=== PATIENT | female | born 1975 | race Caucasian/White ===

== ENCOUNTER 2016-08-29 21:39 | Observation (INO) ==
[2016-08-29] MEDS ORDERED: Aspirin 325 MG TABLET PO ONE (22:37)
[2016-08-29 23:19] LABS: Basophils # 0.1 K/mcL (0.0-0.2); Basophils % 0.7 %; Eosinophils # 0.7 K/mcL (0.0-0.6); Eosinophils % 6.4 %; Hematocrit 39.5 % (35.3-44.9); Hemoglobin 13.2 g/dL (11.5-15.4); Immature Granulocytes % 0.3 % (0-4); Lymphocytes # 3.7 K/mcL (0.6-4.6); Lymphocytes % 36.7 %; Mean Corpuscular HGB Conc 33.4 g/dL (31.6-35.5); Mean Corpuscular Hemoglobin 28.1 pg (28.0-33.3); Mean Platelet Volume 9.6 fL (9.4-12.4); Monocytes # 0.6 K/mcL (0.0-1.3); Monocytes % 5.5 %; Neutrophils # 5.1 K/mcL (1.6-8.9); Platelet Count 337 K/mcL (140-400); Red Cell Distribution Width 14.3 % (11.5-14.5); Segmented Neutrophils % 50.4 %
[2016-08-29 23:25] LABS: Prothrombin Time 10.6 Seconds (9.4-12.1)
[2016-08-29 23:28] LABS: Activated Partial Thrombo Time 27.6 Seconds (26.0-36.0)
[2016-08-29 23:33] LABS: BUN/Creatinine Ratio 17 (6-26); Blood Urea Nitrogen 13 mg/dL (7-20); Calcium 8.4 mg/dL (8.6-10.8); Carbon Dioxide 19 mEq/L (19-29); Chloride 107 mEq/L (98-109); Glucose 109 mg/dL (70-99); Osmolality,Calculated 283 (280-300); Potassium 3.5 mEq/L (3.5-4.5); Sodium 136 mEq/L (136-145); eGFR For African Americans > 60 (> 60); eGFR For Non-African Americans > 60 (> 60)
--- NOTE | 2016-08-29 23:39 | Emergency Department Note ---
Disposition Clinical Impression: Chest pain, Abnormal EKG Disposition: Admitted As Inpatient Condition: Good Referrals: NO,PCP [Non-Partnered Physician] - Forms: ED Satisfaction Letter Time of Disposition: 01:48 Chest Pain HPI - General Chief Complaint: ED Chest Pain Stated Complaint: chest pain, history of heart attacks Time Seen by Provider: 08/29/16 22:38 Source: patient Mode of arrival: ambulatory Limitations: no limitations Vital Signs Reviewed: Yes Nursing Notes Reviewed: Yes - History of Present Illness HPI Narrative: This is a 41-year-old female who presents with chest pain tightening in quality. Pt states the pain radiates to her LUE and neck. Patient states she is also having nausea and shortness of breath associated. Patient denies any cardiac history she has not had a stress test or heart. Patient states nothing makes it better or worse. Patient states it has been worse over the last couple days. Pt complaint: chest pain Onset (ago): day(s) (2) Duration: constant Severity scale (1-10): 8 - Related Data Home Medications Medication Instructions Recorded Confirmed Ibuprofen [Motrin] 800 mg PO Q6H PRN 11/14/15 05/08/16 Rivaroxaban [Xarelto] 15 mg PO 1700 05/08/16 05/08/16 Previous Rx's Medication Instructions Recorded Ferrous Sulfate [Iron] 1 tab PO DAILY #30 capsule.er 12/23/15 Famotidine [Pepcid] 20 mg PO BID #10 tablet 05/09/16 Hydrocodone/Acetaminophen [[place] 1 tab PO Q4H PRN #12 tab 05/09/16 5-325 Tablet] Ondansetron ODT [Zofran ODT] 4 mg SL Q6HR #12 tab.rapdis 05/09/16 Allergies Allergy/AdvReac Type Severity Reaction Status Date / Time No Known Allergies Allergy Verified 08/29/16 21:55 All systems ED: reviewed and negative except as stated. Constitutional: Denies: fever, chills, weakness, weight change Eyes: Denies: eye pain, eye discharge, vision change ENT ED: Denies: ear pain, throat pain, dental pain, hearing loss, epistaxis, congestion, dysphagia Cardiovascular: Reports: chest pain. Denies: palpitations, dyspnea on exertion , edema, syncope Respiratory: Reports: dyspnea. Denies: cough, wheezes, hemoptysis, stridor Gastrointestinal: Reports: nausea. Denies: abdominal pain, vomiting, diarrhea, constipation, hematemesis, melena, hematochezia Genitourinary: Denies: dysuria, frequency, hematuria, discharge Musculoskeletal: Denies: back pain, neck pain, arthralgia, myalgia Integumentary: Denies: rash, abrasion, lesions Neurological: Denies: headache, weakness, numbness, paresthesias, confusion, abnormal gait, vertigo Psychiatric: Denies: anxiety, depression, suicidal thoughts, homicidal thoughts , auditory hallucinations, visual hallucinations Endocrine: Denies: fatigue Hematological/Lymphatic: Denies: easy bleeding, easy bruising Allergic/Immunologic: Denies: facial swelling, urticaria Chest Pain PMH - Past Medical History Medical history: Reports: coronary artery disease, DVT, kidney stones, migraine , myocardial infarction, pulmonary embolus, other Surgical history: Reports: , cholecystectomy, other ( 5) Psychiatric history: Reports: anxiety HOSPICE ART THERAPIST history: Reports: no HOSPICE ART THERAPIST history, other - Social History Smoking Status: Current every day smoker Alcohol use: Reports: rarely Drug use: Reports: none Physical Exam - General Limitations: no limitations General appearance: alert, in no apparent distress - Head Head exam: atraumatic, normocephalic, normal inspection - Eye Eye exam: Present: normal appearance, PERRL, EOMI - ENT ENT exam: normal exam, normal oropharynx, mucous membranes moist - Expanded ENT Exam External ear exam: Present: normal external inspection Mouth exam: Present: normal external inspection Teeth exam: Present: normal inspection Throat exam: Present: normal inspection - Neck Neck exam: Present: normal inspection, full ROM, trachea midline - Chest Chest inspection: Present: normal inspection, symmetric chest wall rise - Respiratory Respiratory exam: Present: wheezes - Cardiovascular Cardiovascular exam: Present: regular rate, normal rhythm, normal heart sounds - Abdominal Exam Abdominal exam: Present: soft, Non-Tender. Absent: tenderness, distention, guarding, rebound, rigidity - Extremities Exam Extremities exam: Present: normal inspection, full ROM. Absent: tenderness, pedal edema - Expanded Upper Extremity Exam Shoulder exam: Present: normal inspection, full ROM Arm exam: Present: normal inspection, full ROM Elbow exam: Present: normal inspection, full ROM Forearm/Wrist exam: Present: normal inspection, full ROM Hand exam: Present: normal inspection, full ROM Vascular exam: Normal: capillary refill, radial pulse - Expanded Lower Extremity Exam Hip/Pelvis exam: Present: normal inspection, full ROM Upper leg exam: Present: normal inspection, full ROM Knee exam: Present: normal inspection, full ROM Lower leg exam: Present: normal inspection, full ROM Ankle exam: Present: normal inspection, full ROM Foot/toe exam: Present: normal inspection, full ROM Neurovascular/Tendon exam: Absent: motor deficit, sensory deficit, tendon deficit - Back Exam Back exam: Present: normal inspection, full ROM. Absent: tenderness - Neurological Exam Neurological exam: Present: alert, oriented X3 - Expanded Neurological Exam Patient oriented to: Present: person, place, time Coma Scale Eye Opening: Spontaneous Coma Scale Motor Response: Obeys Commands Coma Scale Verbal Response: Oriented Coma Scale Total: 15 - Psychiatric Psychiatric exam: Present: normal affect, normal mood - Skin Skin exam: Present: warm, dry, intact, normal color Course - Consultations Consultation #1: The interventionalist Dr. Boone looked at pts EKG and he states everything is old there is nothing acute on the EKGs. Time: 01:41 Consultation #2: I spoke with Dr. Wesly portilloay to admit. Time: 01:53 Vital Signs Temperature 97.5 F L 08/29/16 21:56 Pulse Rate 68 08/29/16 21:56 Respiratory Rate 20 08/29/16 21:56 Blood Pressure 124/77 08/29/16 21:56 O2 Sat by Pulse Oximetry 97 08/29/16 21:56 Temperature 97.5 F L 08/29/16 21:56 Pulse Rate 60 08/30/16 01:51 Respiratory Rate 16 08/30/16 01:51 Blood Pressure 106/73 08/30/16 01:51 O2 Sat by Pulse Oximetry 99 08/30/16 01:51 Oxygen Delivery Oxygen Delivery Room Air Chest Pain - Medical Records Medical records reviewed: Yes I reviewed the patient's medical records. - Lab Data Lab results reviewed: Yes I reviewed the patient's lab results. Result diagrams: 08/29/16 23:10 08/29/16 23:10 Lab Results 08/29/16 08/29/16 08/29/16 Range/Units 23:10 23:10 23:10 WBC 10.2 (4.3-11.1) K/mcL RBC 4.70 (3.82-4.97) M/mcL Hgb 13.2 (11.5-15.4) g/dL Hct 39.5 (35.3-44.9) % MCV 84.0 (83.0-100.0) fL MCH 28.1 (28.0-33.3) pg MCHC 33.4 (31.6-35.5) g/dL RDW 14.3 (11.5-14.5) % Plt Count 337 (140-400) K/mcL MPV 9.6 (9.4-12.4) fL Immature Gran % 0.3 (0-4) % Seg Neutrophils % 50.4 % Lymphocytes % 36.7 % Monocytes % 5.5 % Eosinophils % 6.4 % Basophils % 0.7 % Neutrophils # 5.1 (1.6-8.9) K/mcL Lymphocytes # 3.7 (0.6-4.6) K/mcL Monocytes # 0.6 (0.0-1.3) K/mcL Eosinophils # 0.7 H (0.0-0.6) K/mcL Basophils # 0.1 (0.0-0.2) K/mcL PT 10.6 (9.4-12.1) Seconds INR 1.0 APTT 27.6 (26.0-36.0) Seconds D-Dimer (0-500) ng/mLFEU Sodium 136 (136-145) mEq/L Potassium 3.5 (3.5-4.5) mEq/L Chloride 107 (98-109) mEq/L Carbon Dioxide 19 (19-29) mEq/L BUN 13 (7-20) mg/dL Creatinine 0.75 (0.57-1.11) mg/dL Est GFR ( Amer) > 60 (> 60) Est GFR (Non-Af Amer) > 60 (> 60) BUN/Creatinine Ratio 17 (6-26) Glucose 109 H (70-99) mg/dL Calculated Osmolality 283 (280-300) Calcium 8.4 L (8.6-10.8) mg/dL Troponin I (0-0.03) ng/mL B-Natriuretic Peptide (0-100) pg/mL TSH 1.609 (0.350-4.840) mcIU/mL 08/29/16 08/29/16 08/29/16 Range/Units 23:10 23:10 23:10 WBC (4.3-11.1) K/mcL RBC (3.82-4.97) M/mcL Hgb (11.5-15.4) g/dL Hct (35.3-44.9) % MCV (83.0-100.0) fL MCH (28.0-33.3) pg MCHC (31.6-35.5) g/dL RDW (11.5-14.5) % Plt Count (140-400) K/mcL MPV (9.4-12.4) fL Immature Gran % (0-4) % Seg Neutrophils % % Lymphocytes % % Monocytes % % Eosinophils % % Basophils % % Neutrophils # (1.6-8.9) K/mcL Lymphocytes # (0.6-4.6) K/mcL Monocytes # (0.0-1.3) K/mcL Eosinophils # (0.0-0.6) K/mcL Basophils # (0.0-0.2) K/mcL PT (9.4-12.1) Seconds INR APTT (26.0-36.0) Seconds D-Dimer 477 (0-500) ng/mLFEU Sodium (136-145) mEq/L Potassium (3.5-4.5) mEq/L Chloride (98-109) mEq/L Carbon Dioxide (19-29) mEq/L BUN (7-20) mg/dL Creatinine (0.57-1.11) mg/dL Est GFR ( Amer) (> 60) Est GFR (Non-Af Amer) (> 60) BUN/Creatinine Ratio (6-26) Glucose (70-99) mg/dL Calculated Osmolality (280-300) Calcium (8.6-10.8) mg/dL Troponin I 0.00 (0-0.03) ng/mL B-Natriuretic Peptide 36 (0-100) pg/mL TSH (0.350-4.840) mcIU/mL 08/30/16 Range/Units 00:59 WBC (4.3-11.1) K/mcL RBC (3.82-4.97) M/mcL Hgb (11.5-15.4) g/dL Hct (35.3-44.9) % MCV (83.0-100.0) fL MCH (28.0-33.3) pg MCHC (31.6-35.5) g/dL RDW (11.5-14.5) % Plt Count (140-400) K/mcL MPV (9.4-12.4) fL Immature Gran % (0-4) % Seg Neutrophils % % Lymphocytes % % Monocytes % % Eosinophils % % Basophils % % Neutrophils # (1.6-8.9) K/mcL Lymphocytes # (0.6-4.6) K/mcL Monocytes # (0.0-1.3) K/mcL Eosinophils # (0.0-0.6) K/mcL Basophils # (0.0-0.2) K/mcL PT (9.4-12.1) Seconds INR APTT (26.0-36.0) Seconds D-Dimer (0-500) ng/mLFEU Sodium (136-145) mEq/L Potassium (3.5-4.5) mEq/L Chloride (98-109) mEq/L Carbon Dioxide (19-29) mEq/L BUN (7-20) mg/dL Creatinine (0.57-1.11) mg/dL Est GFR ( Amer) (> 60) Est GFR (Non-Af Amer) (> 60) BUN/Creatinine Ratio (6-26) Glucose (70-99) mg/dL Calculated Osmolality (280-300) Calcium (8.6-10.8) mg/dL Troponin I 0.00 (0-0.03) ng/mL B-Natriuretic Peptide (0-100) pg/mL TSH (0.350-4.840) mcIU/mL - Radiology Data Radiology results reviewed: Yes I reviewed the patient's radiology results. - EKG Data EKG attestation: Yes I reviewed and interpreted this EKG. EKG shows normal: sinus rhythm Rate: normal Rhythm: NSR [place]/QRS: normal T wave inversions noted in: v3, v4, v5, v6 When compared to previous EKG there are: changes noted (t wave inversions are new) Interpretation: nonspecific ST-T wave changes
[2016-08-30 00:36] LABS: Thyroid Stimulating Hormone 1.609 mcIU/mL (0.350-4.840)
[2016-08-30] MEDS ORDERED: *HR* HYDROcodone/Acet 5/325 mg TABLET PO PRN (04:29)
[2016-08-30] MEDS ORDERED: Naloxone 0.4 MG/ML INJ IVP PRN (04:31)
[2016-08-30] MEDS ORDERED: *HR* OxyCODONE Immed Rel 5 MG TABLET PO PRN (04:31)
[2016-08-30] MEDS ORDERED: Benzonatate 100 MG CAPSULE PO PRN (04:31)
[2016-08-30] MEDS ORDERED: Mag Hydrox/Al Hydrox/Simeth 30 ML UDC PO PRN (04:31)
[2016-08-30] MEDS ORDERED: Acetaminophen 325 MG TABLET PO PRN (04:31)
[2016-08-30] MEDS ORDERED: *HR* Metoprolol 5 MG/5 ML VIAL IVP PRN (04:31)
[2016-08-30] MEDS ORDERED: *HR* Morphine 2 MG/ML SYRINGE IVP PRN ×2 (04:31→04:42)
[2016-08-30] MEDS ORDERED: Albuterol 2.5 MG/3 ML NEBULIZER IH PRN (04:31)
[2016-08-30] MEDS ORDERED: Ondansetron 4 MG/2 ML VIAL IVP PRN (04:31)
[2016-08-30] MEDS ORDERED: Nitroglycerin 0.4 MG TAB.SUBL SL PRN (04:31)
[2016-08-30 05:07] LABS: VBG HCO3 24.5 mEq/L (21-27); VBG PH 7.44 pH Units (7.32-7.42)
[2016-08-30 05:14] LABS: Ionized Calcium 1.1 mmol/L (1.15-1.35)
[2016-08-30 05:21] LABS: Chol/HDL Ratio 4.1 (0-4.9); Magnesium 1.9 mg/dL (1.6-2.6)
[2016-08-30 05:23] LABS: Hemoglobin A1C 5.3 %
[2016-08-30 05:44] LABS: Thyroid Stimulating Hormone 1.395 mcIU/mL (0.350-4.840)
[2016-08-30] MEDS ORDERED: Calcium Gluconate 1,000 MG in D5% in Water 100 ML IVPB ONE (06:21)
[2016-08-30] MEDS: 0.9 % Sodium Chloride 1,000 ML IVC SCH (06:44)
[2016-08-30] MEDS: *HR* OxyCODONE Immed Rel 5 MG TABLET PO PRN ×4 (06:48→23:40)
[2016-08-30] MEDS: Famotidine 20 MG TABLET PO SCH ×2 (08:54→21:00)
[2016-08-30] MEDS: Aspirin 81 MG TAB.CHEW PO SCH (08:54)
[2016-08-30] MEDS: Nicotine 21 MG PATCH.TD24 TD SCH (08:56)
--- NOTE | 2016-08-30 11:22 | Electrocardiograph Report ---
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
--- NOTE | 2016-08-30 11:25 | Electrocardiograph Report ---
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
[2016-08-30] MEDS: Ipratropium/Albuterol Neb 3 ML IH SCH ×3 (11:35→23:13)
--- NOTE | 2016-08-30 14:51 | ECHO - Doppler Report ---
Echocardiogram Name: Oriana Delong Date of Study: 08/30/2016 Date: 1975 Ht: 65.0 in Medical Record#: [id number] Age: 41 Wt: 172.0 lb Gender: Female BSA: 1.86 Order #: [id number] Location: [facility] Room #: 3B39 Reading Physician: Elza Hanson DO Professor/Nurse Anesthetist: Jong Jerez RN Ordering Physician: Sudarshan Jarrell MD Primary Physician: Malinda Saldivar CNP Indications: Chest pain Impressions: LVEF 55%. Normal left ventricular size and systolic function. Normal diastolic function of the left ventricle. Normal right ventricular size and function. No significant valvular dysfunction. No pulmonary hypertension. Left Ventricular Wall Motion: Rest Echo Findings All wall segments showed normal motion. Findings: Study Quality * Technically adequate exam. ECG Findings * Normal sinus rhythm. Left Ventricle * LVEF 55%. * Normal LV chamber size, wall thickness and function. * Normal left ventricular diastolic function. Left Atrium * Normal left atrial size. Mitral Valve * Normal mitral valve structure. * No mitral stenosis. * Trace mitral regurgitation. Aortic Valve * No aortic regurgitation. * Aortic valve not well visualized. * No aortic stenosis. Tricuspid Valve * Trace tricuspid regurgitation. * Normal tricuspid valve structure. * Estimated RA pressure is 3 mmHg. * Estimated RVSP is 24 mmHg. * No pulmonary hypertension. Pulmonic Valve * Pulmonic valve is not well visualized. * No pulmonic stenosis. * Trace pulmonic regurgitation. Pulmonary Artery * Pulmonary artery not well visualized. Right Ventricle * Normal right ventricular structure and function. Right Atrium * Normal right atrial size. Interatrial Septum * No evidence of PFO by color Doppler. IVC * Normal IVC dimensions and inspiratory collapse. Pericardium * There is no pericardial effusion present. Aorta * Normally sized aortic root. History Hypertension History of Smoking Years 6 Packs 0.5 Family History of CAD Myocardial Infarction 11/14/2015 a Previous Echo was performed. Measurements: BP: 90/ 57 2D Normal Values RVIDd: 2.70 cm <2.7 cm IVSd: .80 cm 0.6 - 1.0 cm LVIDd: 5.30 cm 3.7 - 5.6 cm LVPWd: .80 cm 0.6 - 1.1 cm LVIDs: 3.60 cm 1.5 - 3.6 cm LA: 3.30 cm 2.0 - 4.0cm %FS: 32.10 cm >25 % LVOT Diam: 2.00 cm LA volume: Mitral Valve Peak E:.98 m/sec Peak A:.74 m/sec E/A Ratio:1.3 Peak E' Lat Rico:11.1 cm/s Peak E' Med Rico:10.3 cm/s E/E' Lat Ratio:8.8 E/E' Med Ratio:9.5 Tricuspid Valve TV Regurg Peak Grad: 21.00mmHg TV Regurg Peak Rico: 2.31m/sec Updated by Elza Hanson on 08/30/2016 2:47:20 PM electronically signed on 08/30/2016 2:48:01 PM with status of Final Wall Motion [place]: 1=Normal, 2=Hypokinesis, 3=Akinesis, 4=Dyskinesis, 5=Aneurysmal, 6=Hyperkinetic, X=Not Visualized (Blank)=Missing
--- NOTE | 2016-08-30 16:31 | Internal Med Progress Note ---
Date of Encounter: 08/30/16 Time of Encounter: 16:29 - Assessment and plan (1) Chest pain Current Visit: Yes Status: Acute Assessment and plan: The patient was admitted for chest pain, negative cardiac biomarkers. She states has a history of coronary artery disease. She has not seen it regularly for many months. She is not taking medications at this point. We will continue with telemetry monitoring. Echo was obtained, results were unremarkable. We will keep the patient nothing by mouth and obtain a stress test tomorrow in the morning. The patient is a current smoker, smoking cessation was strongly advised. Qualifiers: Chest pain type: precordial pain Qualified Code(s): R07.2 - Precordial pain (2) Tobacco use Current Visit: No Status: Acute - Time Spent With Patient 25 - 35 minutes - Subjective Interval history: The patient was seen and examined on rounds. She was admitted with chest pain. She states that she is still having chest pain. - Constitutional Vitals: Temp Pulse Resp BP Pulse Ox 98.2 F 67 16 93/57 97 08/30/16 14:54 08/30/16 14:54 08/30/16 14:54 08/30/16 14:54 08/30/16 14:54 - Head Head exam: Present: atraumatic, normocephalic - Eye Eye exam: Present: PERRL, conjuntiva pink, sclera anicteric Pupils: Present: PERRL - Neck Neck exam general surgery: Present: supple, trachea midline. Absent: lymphadenopathy - Respiratory Respiratory exam: Present: CTAB. Absent: accessory muscle use, rales, rhonchi, wheezes - Cardiovascular Cardiovascular exam: Present: RRR, +S1, +S2. Absent: diastolic murmur, gallop, rubs, systolic murmur - GI/Abdominal GI/Abdominal exam: Present: normal bowel sounds, soft, no peritoneal signs. Absent: distended, tenderness - Extremities Exam Extremities exam: Present: warm, radial pulses palpable and symetrical. Absent : calf tenderness, cyanotic, pedal edema - Neurological Exam Neurological exam: Present: CN II-XII intact, oriented X3, no focal deficits. Absent: pronater drift, facial droop, speech deficit - Skin Skin exam: Present: dry, intact Internal Medicine: Result - Labs CBC & Chem 7: 08/29/16 23:10 08/29/16 23:10 Labs: Cardiac Enzymes 08/30/16 08/30/16 Range/Units 04:52 07:28 Troponin I 0.00 0.00 (0-0.03) ng/mL - ABG Interpretation ABG results: PT/INR, D-dimer PT 10.6 Seconds (9.4-12.1) 08/29/16 23:10 D-Dimer 477 ng/mLFEU (0-500) 08/29/16 23:10 - Impressions Impressions Chest CTA 08/30/16 08:30 IMPRESSION: Negative CTA of the pulmonary arteries. D/ / 08/30/2016 09:20:29 Gordon Frost MD / [email or web address] Interpreting Provider: Gordon Frost MD Consult Discharge Plan - Plan Referrals: Malinda Saldivar, [employer] [Primary Care Provider] -
[2016-08-30] MEDS ORDERED: *HR* Rivaroxaban 15 MG TABLET PO SCH (17:00)
[2016-08-30] MEDS ORDERED: MethylPREDNISolone 40 MG/ML VIAL IVP SCH (21:00)
[2016-08-31] MEDS: 0.9 % Sodium Chloride 1,000 ML IVC SCH (01:14)
[2016-08-31] MEDS: Ipratropium/Albuterol Neb 3 ML IH SCH ×2 (03:48→10:47)
--- NOTE | 2016-08-31 10:31 | Internal Med History&Physical ---
Date of Encounter: 08/30/16 Time of Encounter: 04:00 Assessment and Plan (1) Acute chest wall pain Status: Acute . (2) Chest pain, rule out acute myocardial infarction Status: Acute . (3) Chest pain with low risk of acute coronary syndrome Status: Acute . (4) Reactive airway disease with wheezing with acute exacerbation Status: Acute . (5) Nicotine dependence with nicotine-induced disorder Status: Chronic . Qualifiers: Nicotine product type: cigarettes Qualified Code(s): F17.219 - Nicotine dependence, cigarettes, with unspecified nicotine-induced disorders (6) Hypercoagulable state Status: Chronic . (7) History of deep vein thrombosis (DVT) during Status: Chronic . (8) History of DVT in adulthood Status: Chronic . (9) History of pulmonary embolus during Status: Chronic . (10) History of pulmonary embolism Status: Chronic . Internal Medicine - H&P: HPI Chief complaint: Chest pain Admitted From: Emergency Dept Plans for Post Hospital Care: Home History of present illness: Ms. Delong is a 41 year old female with history significant for acquired hypercoagulable state (unspecified) with multiple rec DVTs and PEs, chronic anticoagulant therapy (Xarelto), H/O preeclampsia, ?H/O "lupus", CMP/ LVEF 40-45%, nonobstCAD/AMIx2, H/O asthma, osteoarthritis, migraine/headaches, nephrolithiasis, GERD, chr disease/ABL(menorrhagia) anemia, iron deficiency, depression and anxiety, nicotine dependency The patient was visited and interviewed and examined. The patient is admitted to [facility] via the emergency department which presents with reports of acute onset chest pain. Patient reports onset of anterior chest pain approximately 2 days prior to presentation with radiation to left arm and neck. Episodes were associated with nausea and a feeling of shortness of breath. Eyes any/factors. Reports that the pain prior to presentation was worst yet rated at 8/10 in severity patient acknowledges increased personal and family related stressors. History is significant for hypercoagulable state requiring long-term anticoagulation therapy. She has experienced over the years since diagnosis in 2014 during late complicated by preeclampsia and cardiomyopathy multiple episodes of DVTs and PEs and systemic thrombus. She denies any awareness of any family history of hypercoagulable states. Unfortunately she chooses to continue to smoke. She reports compliance with her Xarelto. Denies any dietary medication or recreational indiscretions. Findings in ED: Temperature 97.5 pulse 60-68 respiration 16-20 BP 106-124/73-77. O2 saturation 97-99% room air. CBC 10.2 hemoglobin 13.2 platelets 337,000 differential normal. PT 10.6 INR 1 PTT 27.6. Metabolic panel normal. Glucose 109 osmolality 283. Calcium 8.4. TSH 1.6. Troponin 0.00 BNP 36. D-dimer 477. EKG normal sinus rhythm with T-wave inversions V3 and V4 V5 and V6. Status of the turbinate. Nonspecific ST wave changes. chest x-ray demonstrated no definite acute cardiopulmonary abnormality. 6 mm nodule projecting over the right upper lung uncertain etiology. Prior granulomatous disease right upper lung. Preliminary impression suggests acute chest pain syndrome rule out ACS/UA. Patient is at risk for ACS given very significant complicated the history acquired hypercoagulable status and symptomatic vasculopathy as a consequence. Screening studies are benign. Characteristics of chest pain has typical and atypical features. Patient does acknowledge increased stressors. Patient is at risk for further acute clinical decline and morbidity given this presentation and her significant comorbid conditions. Workup and treatments will proceed comprehensively. Cumulative laboratory and radiographic data base was reviewed, considered and discussed. Pertinent ancillary medical records including ECW and PCI documentation was reviewed and considered. Given the patient's presenting concerns, past medical history, clinical findings and symptoms, she is admitted at this time will undergo further evaluation and disposition. Orders were written as per the computerized physician order entry technician system.......................................................................... .................... Consultative opinions will be sought as clinical circumstances justify. Initial consultative opinion has been requested of cardiology. Pain management needs will be addressed. Laboratory and radiographic data base will be updated as appropriate. Studies include: PT/INR, APTT, Ddimer, CPK, LDH, ZACH, RF, cardiac injury panel, BNP, metabolic and hematologic panel, magnesium, phosphorus, ionized calcium, thyroid panel, lipid profile, A1c, C-peptide, CRP, sedimentation rate, UA, UDS, blood gas, lactic acid, serologies, etc. Precautions: Aspiration, fall, delirium protocol/surveillance initiated. Telemetry with continuous hemodynamic monitoring and pulse oximetry initiated. Orthostatic vital signs. Special studies: CTA chest, chest x-ray, telemetry, EKG, echocardiogram. Anticipate the discretion of cardiovascular medicine team performance of nuclear medicine, Lexiscan, myocardial perfusion stress test pending completion of trending of serial negative troponins treatments. Pulmonary toilet: Incentive spirometry. Aerosol bronchodilator, mucolytic, antitussive PRN. Supplemental oxygen. Corticosteroid therapy PRN. CPAP/BiPAP supplemental oxygen delivery PRN. Aerosol Mucomyst therapy PRN. Fluid and electrolyte repletion efforts will proceed. Careful attention to fluid balance and renal recovery will be emphasized. Avoidance of nephrotoxic exposure and adverse drug drug interaction in the setting of impaired renal function will be monitored closely. Acute coronary syndrome protocol/surveillance initiated. Aspirin, statin, beta zainab, MARIUM inhibitor, supplemental oxygen. Morphine when necessary. Continuance of term anticoagulation (Xarelto). DVT and PUD prophylaxis initiated: PPI therapy, intermittent pneumatic cuffs/ TEDs. Xarelto. Early ambulation will be encouraged. Immunization updates recommended. Influenza and pneumococcal vaccinations as part of ongoing preventative healthcare recommendations strongly recommended. Smoking cessation counseling briefly addressed. Patient accepts nicotine substitution during this hospitalization. Advanced care directive discussion briefly addressed. Patient does not declare any healthcare restrictions at this time. Cardiovascular risk appraisal and cardiovascular risk reduction efforts will be emphasized. Physical and occupational therapy may be consulted to evaluate patient's functional capacity and progress mobility if her circumstances warrant. Outpatient medication schedules will be reviewed, confirmed and facilitated as appropriate. Reconciliation of home treatments including adjustments, substitutions and reintroduction into the treatment regimen will address necessary maintenance therapies for chronic pre-existing medical conditions. Plan of care has been reviewed and discussed in detail with the patient. Questions addressed. Hospital course will depend upon clinical findings, treatment response and potential consultative interventions. Patient is at risk for further acute clinical declineand morbidity due to her presenting chief complaints and comorbidities. Condition is serious. Prognosis is guarded. CODE STATUS is full. Past Med Surg Social Fam HX - Past Medical History Source: old records reviewed Medical history: arthritis, asthma, coronary artery disease, DVT, GERD, kidney stones, migraine, myocardial infarction, pulmonary embolus, other Psychiatric history: anxiety, other - Past Surgical History Surgical History: (x5), cholecystectomy, other (Tubal ligation) - Social History Smoking Status: Current every day smoker Packs per day: 0.5ppd (x7+yrs) Smokeless Tobacco Status: No Alcohol use: rarely Drug use: none Occupational status: employed Current living situation: With Family Activity Level: Independent ambulation, Mostly sedentary Recent Out of Country Travel Within the Last 8 Weeks: No Exposure or Possible Exposure to Illness During Travel: No - Family History Father Living Status: Hx Family Cardiac Disorders: Yes (Heart attack) Mother Living Status: Still Living Hx Family Cardiac Disorders: Yes (HTN) Hx Family Endocrine Disorder: Yes (DM) Internal Medicine - H&P: Meds Ibuprofen [Motrin] 800 mg PO Q6H PRN 11/14/15 [History] Rivaroxaban [Xarelto] 15 mg PO DAILY 05/08/16 [History] Aspirin [Lo-Dose Aspirin EC] 81 mg PO DAILY #30 tablet.dr 08/31/16 [Rx] Allergies No Known Allergies Allergy (Verified 08/30/16 13:51) All Systems PM: A 10-system review of systems was performed and is negative for pertinent findings except as documented above in the HPI. - Constitutional Constitutional: as per HPI, no chills, no fever(s), no night sweats - EENT Eyes: as per HPI, no change in vision, no discharge, no pain, no photophobia Ears: as per HPI, no ear discharge, no ear pain, no tinnitus Nose, mouth and throat: as per HPI, no dysphagia, no nasal discharge, no neck pain, no sore throat - Cardiovascular Cardiovascular ROS IM: as per HPI, chest pain, no diaphoresis, no dyspnea, no lightheadedness, no palpitations, no syncope - Respiratory Respiratory: as per HPI, dyspnea, pain on inspiration, no cough, no hemoptysis, no wheezing, no excessive phlegm production - Gastrointestinal Gastrointestinal: as per HPI, no abdominal pain, no diarrhea, no hematemesis, no hematochezia, no melena, no nausea, no vomiting - Genitourinary Genitourinary: as per HPI, no change in urinary stream, no dysuria, no flank pain, no hematuria Menstruation: as per HPI, menses variable, period heavy, other - Musculoskeletal Musculoskeletal ROS IM: as per HPI, no numbness, no tingling - Integumentary Integumentary IM: as per HPI, no rash, no unusual bruising - Neurological Neurological ROS: as per HPI, no confusion, no convulsions, no focal weakness, no numbness, no tingling, no tremor(s) - Psychiatric Psychiatric: as per HPI - Endocrine Endocrine IM: as per HPI - Hematologic/Lymphatic Hematologic/Lymphatic: as per HPI, no easy bruising - Allergic/Immunologic Allergic/Immunologic: as per HPI - Constitutional Vitals: Temp Pulse Resp BP Pulse Ox 97.6 F 65 16 100/63 96 08/31/16 07:00 08/31/16 07:09 08/31/16 07:00 08/31/16 07:09 08/31/16 07:00 General appearance: Present: mild distress, A&O X 3, answers questions appropriately - Head Head exam: Present: atraumatic, normal inspection, normocephalic - Eye Eye exam: Present: EOMI, PERRL, conjuntiva pink, sclera anicteric Pupils: Present: normal accommodation, PERRL - ENT ENT exam: Present: mucous membranes moist, normal oropharynx - Neck Neck exam general surgery: Present: full ROM, tenderness (Along paracervical mm. of neck.), supple, trachea midline. Absent: lymphadenopathy, nuchal rigidity - Expanded Neck Exam Neck exam: Present: tenderness. Absent: anterior neck swelling, carotid bruit, tracheal deviation - Respiratory Respiratory exam: Present: chest wall tenderness, decreased breath sounds, wheezes. Absent: accessory muscle use, rales, rhonchi - Cardiovascular Cardiovascular exam: Present: distant heart sounds, RRR, +S1, +S2. Absent: diastolic murmur, gallop, rubs, systolic murmur - GI/Abdominal GI/Abdominal exam: Present: normal bowel sounds, soft, no peritoneal signs. Absent: distended, tenderness - Extremities Exam Extremities exam: Present: full ROM, warm, radial pulses palpable and symetrical. Absent: calf tenderness, cyanotic, pedal edema - Neurological Exam Neurological exam: Present: alert, CN II-XII intact, oriented X3, no focal deficits. Absent: pronater drift, facial droop, speech deficit - Psychiatric Psychiatric exam: Present: normal affect, normal mood - Skin Skin exam: Present: dry, intact, warm. Absent: petechiae, rash, urticaria, vesicles Internal Med - H&P Results - Labs CBC & Chem 7: 08/29/16 23:10 08/29/16 23:10 Labs: Cardiac Enzymes 08/30/16 Range/Units 16:11 Troponin I 0.00 (0-0.03) ng/mL - ABG Interpretation ABG results: 08/30/16 04:52 VBG pH 7.44 H VBG pCO2 36 L VBG pO2 129 H VBG HCO3 24.5 - Impressions ITS Impressions Chest CTA 08/30/16 08:30 IMPRESSION: Negative CTA of the pulmonary arteries. D/ / 08/30/2016 09:20:29 Gordon Frost MD / [email or web address] Interpreting Provider: Gordon Frost MD Vital Signs Temp Pulse Resp BP Pulse Ox 08/31/16 07:09 65 100/63 08/31/16 07:00 97.6 F 60 16 82/49 96 08/31/16 03:59 97.6 F 52 17 91/56 97 08/30/16 23:38 97.5 F L 59 16 92/56 98 08/30/16 23:13 18 99 08/30/16 19:47 98 08/30/16 19:39 97.7 F 54 15 96/59 99 08/30/16 16:54 16 97 08/30/16 14:54 98.2 F 67 16 93/57 97 08/30/16 10:32 98.1 F 61 16 90/57 98 Intake and Output 08/30/16 08/31/16 08/31/16 23:59 07:59 15:59 Intake Total 240 / 240 1000 / 1000 Balance 240 / 240 1000 / 1000 Intake: IV Fluids 1000 / 1000 0.9 % Sodium Chloride 1, 1000 / 1000 000 ML @ 50 mls/hr IVC . Q20H MARI Rx#:[id number] Oral 240 / 240 Other: Meal Dinner NPO Percent of Meal Consumed 100% Cardiac Enzymes 08/30/16 Range/Units 16:11 Troponin I 0.00 (0-0.03) ng/mL Abnormal lab results Eosinophils # 0.7 K/mcL (0.0-0.6) H 08/29/16 23:10 VBG pH 7.44 pH Units (7.32-7.42) H 08/30/16 04:52 VBG pCO2 36 mmHg (41-51) L 08/30/16 04:52 VBG pO2 129 mmHg (25-40) H 08/30/16 04:52 Glucose 109 mg/dL (70-99) H 08/29/16 23:10 Calcium 8.4 mg/dL (8.6-10.8) L 08/29/16 23:10 Ionized Calcium 1.10 mmol/L (1.15-1.35) L 08/30/16 04:52 HDL Cholesterol 34 mg/dL (40-59) L 08/30/16 04:52 Allergies Allergy/AdvReac Type Severity Reaction Status Date / Time No Known Allergies Allergy Verified 08/30/16 13:51 Laboratory Results WBC 10.2 K/mcL (4.3-11.1) 08/29/16 23:10 RBC 4.70 M/mcL (3.82-4.97) 08/29/16 23:10 Hgb 13.2 g/dL (11.5-15.4) 08/29/16 23:10 Hct 39.5 % (35.3-44.9) 08/29/16 23:10 MCV 84.0 fL (83.0-100.0) 08/29/16 23:10 MCH 28.1 pg (28.0-33.3) 08/29/16 23:10 MCHC 33.4 g/dL (31.6-35.5) 08/29/16 23:10 RDW 14.3 % (11.5-14.5) 08/29/16 23:10 Plt Count 337 K/mcL (140-400) 08/29/16 23:10 MPV 9.6 fL (9.4-12.4) 08/29/16 23:10 Immature Gran % 0.3 % (0-4) 08/29/16 23:10 Seg Neutrophils % 50.4 % 08/29/16 23:10 Lymphocytes % 36.7 % 08/29/16 23:10 Monocytes % 5.5 % 08/29/16 23:10 Eosinophils % 6.4 % 08/29/16 23:10 Basophils % 0.7 % 08/29/16 23:10 Neutrophils # 5.1 K/mcL (1.6-8.9) 08/29/16 23:10 Lymphocytes # 3.7 K/mcL (0.6-4.6) 08/29/16 23:10 Monocytes # 0.6 K/mcL (0.0-1.3) 08/29/16 23:10 Eosinophils # 0.7 K/mcL (0.0-0.6) H 08/29/16 23:10 Basophils # 0.1 K/mcL (0.0-0.2) 08/29/16 23:10 ESR 3 mm/hr (0-15) 08/30/16 07:28 PT 10.6 Seconds (9.4-12.1) 08/29/16 23:10 INR 1.0 08/29/16 23:10 APTT 27.6 Seconds (26.0-36.0) 08/29/16 23:10 D-Dimer 477 ng/mLFEU (0-500) 08/29/16 23:10 VBG pH 7.44 pH Units (7.32-7.42) H 08/30/16 04:52 VBG pCO2 36 mmHg (41-51) L 08/30/16 04:52 VBG pO2 129 mmHg (25-40) H 08/30/16 04:52 VBG HCO3 24.5 mEq/L (21-27) 08/30/16 04:52 Sodium 136 mEq/L (136-145) 08/29/16 23:10 Potassium 3.5 mEq/L (3.5-4.5) 08/29/16 23:10 Chloride 107 mEq/L (98-109) 08/29/16 23:10 Carbon Dioxide 19 mEq/L (19-29) 08/29/16 23:10 BUN 13 mg/dL (7-20) 08/29/16 23:10 Creatinine 0.75 mg/dL (0.57-1.11) 08/29/16 23:10 Est GFR ( Amer) > 60 (> 60) 08/29/16 23:10 Est GFR (Non-Af Amer) > 60 (> 60) 08/29/16 23:10 BUN/Creatinine Ratio 17 (6-26) 08/29/16 23:10 Glucose 109 mg/dL (70-99) H 08/29/16 23:10 Est Mean Plasma Glucose 105 mg/dl 08/30/16 04:52 Hemoglobin A1c 5.3 % (-5.6) 08/30/16 04:52 Calculated Osmolality 283 (280-300) 08/29/16 23:10 Calcium 8.4 mg/dL (8.6-10.8) L 08/29/16 23:10 Ionized Calcium 1.10 mmol/L (1.15-1.35) L 08/30/16 04:52 Magnesium 1.9 mg/dL (1.6-2.6) 08/30/16 04:52 Troponin I 0.00 ng/mL (0-0.03) 08/30/16 16:11 C-Reactive Protein 2 mg/L (Less than 5) 08/30/16 04:52 B-Natriuretic Peptide 36 pg/mL (0-100) 08/29/16 23:10 Triglycerides 92 mg/dL (< 150) 08/30/16 04:52 Cholesterol 138 mg/dL (< 200) 08/30/16 04:52 LDL Cholesterol, Calc 86 mg/dL (0-99) 08/30/16 04:52 VLDL Cholesterol, Calc 18 mg/dL (< 31) 08/30/16 04:52 HDL Cholesterol 34 mg/dL (40-59) L 08/30/16 04:52 Cholesterol/HDL Ratio 4.1 (0-4.9) 08/30/16 04:52 Lipase 15 Units/L (8-78) 08/30/16 04:52 TSH 1.395 mcIU/mL (0.350-4.840) 08/30/16 04:52 Rheumatoid Factor < 15 IU/mL (0-29) 08/30/16 07:28 Impressions Chest X-Ray 08/29/16 22:15 IMPRESSION: 1. No definite acute cardiopulmonary abnormality. 2. There is a 6 mm nodule projecting over the right upper lung, which is not clearly identified on the prior exam. Further evaluation with CT of the chest can be performed on a nonemergent basis. 3. Evidence of prior granulomatous disease is again noted within the right upper lung. D/ / Aiden Cohen MD / Aiden Cohen MD Interpreting Provider: Aiden Cohen MD Chest CTA 08/30/16 08:30
[2016-08-31 11:34] VITALS: BP 102/64
--- NOTE | 2016-08-31 11:34 | Nuclear Medicine Stress Report ---
Exercise Nuclear Stress Name: Oriana Delong Date of Study: 08/31/2016 Date: 1975 Ht: 65.0 in Medical Record#: [id number] Age: 41 Wt: 171.0 lb Gender: Female Order #: [id number] Location: [facility] Room: [facility] Supervising Provider: Junior Rivero CNP Reading Physician: Richmond Logan DO, FACC, JOSE ANTONIO, MARY Ordering Physician: Sandoval Ruiz MD Primary Care Physician: Malinda Saldivar CNP Stress Technologist: Karlie Snow, ATHLETIC EVENTS SCORER, CCT, CPFT Longwall Machine Operator Helper: Andrew Cain Indications: Chest Pain Impression: Abnormal baseline ECG. Exercise ECG is non-diagnostic due to baseline ST-T changes. Of note, baseline ST-T changes did not worsen. The exercise capacity was good (10.1 METs). Chest tightness reported prior to, during, and after exercise. Medium sized, moderate to severe intensity, fixed perfusion defect involving the apex and surrounding apical segments consistent with a prior infarct. No significant castillo-infarct ischemia or ischemia elsewhere. History: Hypertension History of Smoking Stress Test Summary: Stress Test Type: Treadmill Protocol: Ángel Baseline Information: Initial Heart Rate: 67 Blood Pressure: 98/58 Stress Information: Stress Time: 8 min 25 sec Test Terminated Due to (primary): Dyspnea Maximum Blood Pressure: 150/64 Maximum Heart Rate: 158 Percent Maximum Heart Rate Achieved: 88 Double Product: 40310 METS Reached: 10.1 Symptoms: Chest tightness, Shortness of breath, Leg discomfort Nuclear Summary: SPECT myocardial perfusion imaging using Tc99m Sestamibi given intravenously was performed at rest and following cardiac stress testing. The resting images were obtained following initial dose of 11.5 mCi. Following stress an additional dose of 33.6 mCi was given at peak exercise or 30 seconds post regadenoson infusion. Medication Given: Time Medication Dose Units Route Findings: Stress Note * Resting ECG demonstrated normal sinus rhythm, an age undetermined anterior infarction, and ST-T changes. * No baseline arrhythmias were noted. * Exercise ECG is nondiagnostic due to baseline ST-T changes. Of note, baseline changes did not worsen. * No arrhythmias were noted during stress. * The exercise capacity was good (10.1 METs). * Chest tightness reported prior to, during, and after exercise. Hemodynamic responses * Normal hemodynamic responses to exercise. Study Quality * Study quality is average. Gated EF % * Gated EF = 63%. Left Ventricle * LVEDV = 128 mL. Apical Perfusion Rest * The apex and surrounding apical segments demonstrate a moderate to severe reduction in perfusion. Apical Perfusion Stress * The apex and surrounding apical segments demonstrate a moderate to severe reduction in perfusion. TID * No evidence of transient ischemic dilatation. TID ratio = 0.96. Lung Uptake * There is no evidence of increase lung uptake. Updated by Richmond Logan DO, FACRuben, JOSE ANTONIO, MARY on 08/31/2016 11:26:39 AM electronically signed on 08/31/2016 11:28:52 AM with status of Final
[2016-08-31] MEDS: Famotidine 20 MG TABLET PO SCH (12:10)
[2016-08-31] MEDS: Nicotine 21 MG PATCH.TD24 TD SCH (12:11)
[2016-08-31] MEDS: Aspirin 81 MG TAB.CHEW PO SCH (12:11)
--- NOTE | 2016-08-31 12:28 | Discharge Summary ---
Date of Encounter: 08/31/16 Time of Encounter: 12:24 - Discharge Diagnosis (1) Chest pain Priority: Primary Status: Acute Qualifiers: Chest pain type: precordial pain Qualified Code(s): R07.2 - Precordial pain (2) Tobacco use Priority: Secondary Status: Acute - Discharge Medications Prescriptions: Aspirin [Lo-Dose Aspirin EC] 81 mg PO DAILY #30 tablet. Home Medications: Ibuprofen [Motrin] 800 mg PO Q6H PRN 11/14/15 [History] Rivaroxaban [Xarelto] 15 mg PO DAILY 05/08/16 [History] Aspirin [Lo-Dose Aspirin EC] 81 mg PO DAILY #30 tablet. 08/31/16 [Rx] Allergies/Adverse Reactions: Allergies No Known Allergies Allergy (Verified 08/30/16 13:51) Procedures/tests Complete & Pending: Procedures Performed prior 72 hours Category Date Time Status CTA chest [CT angio chest] [CT] Routine Cat Scan 08/30/16 08:30 Completed NM tae perf SPECT multi [NM] Routine Exams 08/30/16 16:32 Taken ECG 12 lead ECG [ECG] Routine Y 08/30/16 04:32 Completed ECG 12 lead ECG [ECG] Routine Y 08/31/16 07:00 Ordered EV echocardiogram Routine Y 08/30/16 04:32 Completed SP exercise nuclear stress Routine Y 08/31/16 08:04 Completed Date of admission: 08/30/16 02:05 Primary care physician: Malinda Saldivar CNP Consults: 08/30/16 04:32 Consult to Nurse Navigator [CONS] Routine Comment: Consult to Nurse Navigator [CONS] Routine Comment: Discharging clinician: Sandoval Ruiz Anticipated date of discharge: 08/31/16 - Patient Status Disposition: Home, Self-Care Condition: Good Functional capacity at discharge: independent ambulation Overall status at discharge: patient is back to baseline - Discharge Instructions Follow Up With: Malinda Saldivar CNP [Primary Care Provider] - Additional Instructions: cardiology follow up. - Diet and Activity Activity: increase activity as tolerated Diet: advance to your usual diet Interval History: This is a 41-year-old female who presents with chest pain tightening in quality. Pt states the pain radiates to her LUE and neck. Patient states she is also having nausea and shortness of breath associated. Patient denies any cardiac history she has not had a stress test or heart. Patient states nothing makes it better or worse. Patient states it has been worse over the last couple days. Hospital course: Ms. Delong is a 41 year old female The patient was admitted for chest pain, negative cardiac biomarkers. She states has a history of coronary artery disease. She has not seen it regularly for many months. She is not taking medications at this point. Echo was obtained, results were unremarkable. stress test done, rpeort noted, old infarcts. no more chest pain. follow up as outpatient. continue with asa. The patient is a current smoker, smoking cessation was strongly advised. - Time Spent with Patient Total time spent providing and/or coordinating discharge services: Greater than 30 minutes - Constitutional Vitals: Temp Pulse Resp BP Pulse Ox 97.6 F 63 16 102/64 100 08/31/16 11:31 08/31/16 11:31 08/31/16 11:31 08/31/16 11:31 08/31/16 11:31 General appearance: Present: mild distress, A&O X 3, answers questions appropriately - Head Head exam: Present: atraumatic, normocephalic - Eye Eye exam: Present: PERRL, conjuntiva pink, sclera anicteric Pupils: Present: PERRL - Neck Neck exam general surgery: Present: supple, trachea midline. Absent: lymphadenopathy - Respiratory Respiratory exam: Present: CTAB. Absent: accessory muscle use, rales, rhonchi, wheezes - Cardiovascular Cardiovascular exam: Present: RRR, +S1, +S2. Absent: diastolic murmur, gallop, rubs, systolic murmur - GI/Abdominal GI/Abdominal exam: Present: normal bowel sounds, soft, no peritoneal signs. Absent: distended, tenderness - Extremities Exam Extremities exam: Present: warm, radial pulses palpable and symetrical. Absent : calf tenderness, cyanotic, pedal edema - Neurological Exam Neurological exam: Present: CN II-XII intact, oriented X3, no focal deficits. Absent: pronater drift, facial droop, speech deficit - Skin Skin exam: Present: dry, intact
[2016-09-01 07:26] LABS: ANA IgG by ELISA NONE DETECTED (None Detected)
[2016-09-01 18:00] LABS: APTT (LE Anticoag) 38 sec (32-48); Diluted Russell Viper Venom 28 sec (33-44); PT (LE-Anticoag) 12.1 sec (12.0-15.5)
--- NOTE | 2016-09-02 06:31 | Electrocardiograph Report ---
Test Date: 2016-08-30 Pat Name: LIGIA SAN Department: 113 Room: 3B39 Gender: F [employer]: : [id number] Requested By: Sudarshan Jarrell Order Number: [id number] Reading MD: Nick Jerez MD Measurements Intervals [place] Rate: 56 P: 12 CT: 164 QRS: -4 QRSD: 94 T: -4 QT: 426 QTc: 419 Interpretive Statements SINUS BRADYCARDIA Electronically Signed On 09-02-16 06:30:16 EST by Nick Jerez MD
== END 2016-08-31 13:35 | disposition home or self-care (01) ==
LOC: EMEROO 21:39 → 3BNU 21:39 → SUATTDRO 08-30 02:05 → 3BNU 08-30 02:10
PROVIDERS: ADMIT Internal Medicine; ATTEND Internal Medicine

== ENCOUNTER 2019-08-16 01:16 | Inpatient (IN) ==
[2019-08-16 01:56] LABS: Basophils # 0.1 K/mcL (0.0-0.2); Basophils % 0.5 %; Eosinophils # 0.8 K/mcL (0.0-0.6); Eosinophils % 5.1 %; Hematocrit 39.3 % (35.3-44.9); Immature Granulocytes % 0.4 % (0-4); Lymphocytes # 3.9 K/mcL (0.6-4.6); Lymphocytes % 24.4 %; Mean Corpuscular HGB Conc 33.1 g/dL (31.6-35.5); Mean Corpuscular Hemoglobin 28.1 pg (28.0-33.3); Mean Corpuscular Volume 84.9 fL (83.0-100.0); Mean Platelet Volume 9.8 fL (9.4-12.4); Monocytes # 0.9 K/mcL (0.0-1.3); Monocytes % 5.8 %; Neutrophils # 10.1 K/mcL (1.6-8.9); Platelet Count 275 K/mcL (140-400); Red Blood Count 4.63 M/mcL (3.82-4.97); Red Cell Distribution Width 13.9 % (11.5-14.5); Segmented Neutrophils % 63.8 %; White Blood Count 15.8 K/mcL (4.3-11.1)
[2019-08-16 01:57] LABS: INR 1.5; Prothrombin Time 16.6 Seconds (9.4-12.1)
[2019-08-16 02:00] LABS: Activated Partial Thrombo Time 37.6 Seconds (26.0-36.0)
[2019-08-16] MEDS ORDERED: Isovue-370 500 ML BOTTLE IVP ONE (02:17)
[2019-08-16 02:32] LABS: BUN/Creatinine Ratio 20 (6-26); Blood Urea Nitrogen 18 mg/dL (6-20); Calcium 8.8 mg/dL (8.6-10.3); Carbon Dioxide 22 mEq/L (23-29); Chloride 107 mEq/L (98-107); Glucose 101 mg/dL (70-105); Osmolality,Calculated 286 (280-300); Potassium 3.9 mEq/L (3.5-5.1); Sodium 137 mEq/L (136-145); eGFR For African Americans > 60 (> 60); eGFR For Non-African Americans > 60 (> 60)
[2019-08-16 02:53] LABS: Troponin I < 0.03 ng/mL (< 0.04)
[2019-08-16] MEDS ORDERED: Acetaminophen 325 MG TABLET PO ONE (05:18)
[2019-08-16] MEDS ORDERED: *HR* Heparin 5,000 UNIT/ML VIAL IVP ONE (06:23)
[2019-08-16] MEDS ORDERED: *HR* Heparin 5,000 UNIT/ML VIAL IVP PRN ×2 (06:23)
[2019-08-16] MEDS: Heparin 25,000 UNIT/250 ML D5W 25,000 UNIT/250 ML IV.SOLN IVC SCH (06:36)
[2019-08-16] MEDS ORDERED: Naloxone 0.4 MG/ML INJ IVP PRN (07:43)
[2019-08-16] MEDS ORDERED: *HR* Labetalol 20 MG/4 ML SYRINGE IVP PRN (07:45)
[2019-08-16] MEDS ORDERED: Ipratropium/Albuterol Neb 3 ML IH PRN (07:46)
[2019-08-16] MEDS: Nicotine 21 MG PATCH.TD24 TD SCH (12:21)
[2019-08-16] MEDS: Acetaminophen 325 MG TABLET PO PRN ×2 (12:21→18:13)
[2019-08-16] MEDS ORDERED: Perflutren Lipid Microsphere 1.3 ML in 0.9 % Sodium Chloride 8.7 ML IVP ONE (16:33)
[2019-08-16 16:34] LABS: Hematocrit 36.5 % (35.3-44.9); Hemoglobin 12.2 g/dL (11.5-15.4)
[2019-08-16] MEDS: *HR* HYDROcodone/Acet 5/325 mg TABLET PO PRN (18:38)
[2019-08-17 01:21] LABS: Basophils # 0.1 K/mcL (0.0-0.2); Basophils % 0.5 %; Eosinophils # 0.7 K/mcL (0.0-0.6); Eosinophils % 6.2 %; Hematocrit 36.1 % (35.3-44.9); Hemoglobin 12.1 g/dL (11.5-15.4); Immature Granulocytes % 0.2 % (0-4); Lymphocytes # 3.9 K/mcL (0.6-4.6); Lymphocytes % 35.9 %; Mean Corpuscular HGB Conc 33.5 g/dL (31.6-35.5); Mean Corpuscular Hemoglobin 27.9 pg (28.0-33.3); Mean Corpuscular Volume 83.2 fL (83.0-100.0); Monocytes # 0.6 K/mcL (0.0-1.3); Monocytes % 5.7 %; Neutrophils # 5.6 K/mcL (1.6-8.9); Platelet Count 282 K/mcL (140-400); Red Blood Count 4.34 M/mcL (3.82-4.97); Red Cell Distribution Width 13.9 % (11.5-14.5); Segmented Neutrophils % 51.5 %; White Blood Count 10.9 K/mcL (4.3-11.1)
[2019-08-17 01:38] LABS: Alanine Aminotransferase 9 Units/L (7-52); Albumin 3.3 g/dL (3.5-5.7); Albumin/Globulin Ratio 1.3 (1.1-2.2); Alkaline Phosphatase 60 Units/L (34-104); Aspartate Amino Transferase 7 Units/L (13-39); BUN/Creatinine Ratio 24 (6-26); Bilirubin,Total 0.2 mg/dL (0.3-1.0); Blood Urea Nitrogen 18 mg/dL (6-20); Calcium 8.4 mg/dL (8.6-10.3); Carbon Dioxide 25 mEq/L (23-29); Chloride 109 mEq/L (98-107); Chol/HDL Ratio 3.8 (0-4.9); Cholesterol 125 mg/dL (< 200); Globulin 2.6 g/dL (2.4-3.5); Glucose 95 mg/dL (70-105); HDL Cholesterol 33 mg/dL (40-59); LDL Cholesterol,Calculated 73 mg/dL (0-99); Magnesium 2.1 mg/dL (1.6-2.6); Osmolality,Calculated 288 (280-300); Phosphorous 3.4 mg/dL (2.7-4.5); Sodium 138 mEq/L (136-145); Total Protein 5.9 g/dL (6.4-8.9); Triglycerides 94 mg/dL (< 150); eGFR For African Americans > 60 (> 60); eGFR For Non-African Americans > 60 (> 60)
[2019-08-17] MEDS: *HR* HYDROcodone/Acet 5/325 mg TABLET PO PRN ×5 (02:46→21:37)
[2019-08-17] MEDS: Heparin 25,000 UNIT/250 ML D5W 25,000 UNIT/250 ML IV.SOLN IVC SCH ×2 (05:04→12:11)
[2019-08-17] MEDS: Nicotine 21 MG PATCH.TD24 TD SCH (08:10)
[2019-08-17] MEDS ORDERED: *HR* Heparin 5,000 UNIT/ML VIAL IVP PRN (11:21)
[2019-08-17] MEDS ORDERED: Heparin 25,000 UNIT/250 ML D5W 25,000 UNIT/250 ML IV.SOLN IVC SCH (11:30)
[2019-08-17] MEDS: *HR* Heparin 5,000 UNIT/ML VIAL IVP PRN (18:42)
[2019-08-18] MEDS: *HR* HYDROcodone/Acet 5/325 mg TABLET PO PRN ×5 (02:01→22:41)
[2019-08-18] MEDS: *HR* Heparin 5,000 UNIT/ML VIAL IVP PRN (02:02)
[2019-08-18] MEDS: Heparin 25,000 UNIT/250 ML D5W 25,000 UNIT/250 ML IV.SOLN IVC SCH ×3 (08:09→18:47)
[2019-08-18] MEDS: Nicotine 21 MG PATCH.TD24 TD SCH (08:15)
[2019-08-18 08:35] LABS: Hematocrit 35.6 % (35.3-44.9); Mean Corpuscular HGB Conc 33.7 g/dL (31.6-35.5); Mean Platelet Volume 9.9 fL (9.4-12.4); Platelet Count 283 K/mcL (140-400); Red Blood Count 4.29 M/mcL (3.82-4.97); Red Cell Distribution Width 14.1 % (11.5-14.5); White Blood Count 7.8 K/mcL (4.3-11.1)
[2019-08-18 08:44] LABS: BUN/Creatinine Ratio 19 (6-26); Blood Urea Nitrogen 15 mg/dL (6-20); Calcium 8.2 mg/dL (8.6-10.3); Carbon Dioxide 26 mEq/L (23-29); Chloride 106 mEq/L (98-107); Glucose 85 mg/dL (70-105); Osmolality,Calculated 284 (280-300); Potassium 3.9 mEq/L (3.5-5.1); Sodium 137 mEq/L (136-145); eGFR For African Americans > 60 (> 60); eGFR For Non-African Americans > 60 (> 60)
[2019-08-18] MEDS: Acetaminophen 325 MG TABLET PO PRN (14:57)
[2019-08-19] MEDS: *HR* HYDROcodone/Acet 5/325 mg TABLET PO PRN (04:13)
[2019-08-19] MEDS: Acetaminophen 325 MG TABLET PO PRN (07:48)
[2019-08-19] MEDS: Nicotine 21 MG PATCH.TD24 TD SCH (07:49)
[2019-08-19 07:54] VITALS: BP 113/64
[2019-08-19] MEDS ORDERED: *HR* Rivaroxaban 15 MG TABLET PO SCH (09:00)
== END 2019-08-19 13:20 | disposition home or self-care (01) | DRG 134 ==
LOC: 2ANU 01:16 → CDU 01:16 → EMEROOARM 01:16 → SUATTDRO 06:41 → CDU 07:55 → 2NENU 15:32
PROVIDERS: ADMIT Internal Medicine; ATTEND Internal Medicine